=== PATIENT | female | born 1940 | race Caucasian/White ===

== ENCOUNTER 2021-05-03 20:05 | Emergency (ER) | payer OTHER ==
[~2021-05-03] VITALS: Ht 162.6 cm; Wt 81.0 kg
[2021-05-03] MEDS ORDERED: SODIUM CHLORIDE 0.9% 1,000 ML IV ONE (20:30)
[2021-05-03 20:57] LABS: HEMATOCRIT. 29.9 % (36.0-48.0); HEMOGLOBIN. 10.3 g/dL (12.0-16.0); MEAN CORPUSCULAR HEMOGLOBIN 30.9 pg (28.0-32.0); MEAN CORPUSCULAR VOLUME 89.7 fL (81.0-99.0); MEAN PLATELET VOLUME 7.7 fl (7.4-10.4); PLATELET 226 x1000/uL (130-400); RED BLOOD CELL COUNT 3.33 mill/uL (4.2-5.4); RED CELL DISTRIBUTION WIDTH 15.3 % (11.6-14.6)
[2021-05-03 21:08] LABS: CHLORIDE 89 mEq/L (98-107)
[2021-05-03] MEDS ORDERED: CALCIUM GLUCONATE 1,000 MG in DEXT 5% WATER 100 ML IV ONE (22:15)
[2021-05-03] MEDS ORDERED: DEXTROSE 50% WATER 50ML SYRINGE IV ONE (22:15)
[2021-05-03] MEDS ORDERED: SODIUM BICARBONATE 8.4% 1 MEQ/ML 50ML SYR IV ONE (22:15)
[2021-05-03] MEDS ORDERED: INSULIN REGULAR (HUMULIN R) 300UNITS/3ML VIAL IV ONE (22:15)
[2021-05-03] MEDS ORDERED: CALCIUM GLUCONATE 1GM PREMIX 50 ML IV NR (22:30)
[2021-05-03 23:16] LABS: PLATELET ESTIMATE NORMAL
[2021-05-04] MEDS ORDERED: DEXTROSE 50% WATER 50ML SYRINGE IV ONE (00:45)
[2021-05-04 01:44] VITALS: BP 128/85
== END 2021-05-04 02:03 | disposition short-term general hospital (02) ==
LOC: ER 20:05
DX: I12.9 Hypertensive chronic kidney disease with stage 1 through stage 4 chronic kidney disease, or unspecified chronic kidney disease (principal); E11.22 Type 2 diabetes mellitus with diabetic chronic kidney disease; N18.9 Chronic kidney disease, unspecified; E87.5 Hyperkalemia; Z20.822 Contact with and (suspected) exposure to COVID-19
CPT/HCPCS: 36415; 71045; 80048; 80053; 82962; 84484; 85025; 87426; 93005; 96361; 96374; 96375; 96376; 99291; J0610; J1815; J3490; J7030; J7060